=== PATIENT | female | born 1980 | race Hispanic/Latino ===

== ENCOUNTER 2019-08-17 03:35 | Emergency (ER) | payer SELFPAY ==
[2019-08-17 03:52] VITALS: BP 132/88
--- NOTE | 2019-08-17 04:00 | Emergency Department Report ---
ED Medical Clearance HPI - General Stated complaint: MEDICAL CLEARANCE/DRUG ABUSE Time Seen by Provider: 08/17/19 03:47 Source: patient, EMS Mode of arrival: Stretcher Limitations: No Limitations - History of Present Illness Initial comments: Patient is a 39-year-old that presents emergency room for medical clearance to be admitted into a rehabilitation center at [facility]. Patient brought in by EMS. Patient states 2 days ago she took 2 Brook's and wants help with her drug add iction. Patient denies any complaints. Patient states she feels fine. Patient denies past medical history except for drug abuse. Patient denies chest pain shortness of breath. patient denies suicidal or homicidal ideations. pt Denies hallucinations. She is transported here from [facility] by EMS and is currently on a court ordered drug rehabilitation. Complaint: medical clearance request -: Sudden Reason for Medical Clearance: other Alledged Intoxication: No Compliant with Home Medications: Yes Traumatic Symptoms: denies traumatic injury Associated Symptoms: denies other symptoms. denies: chest pain, shortness of breath, palpitations, diaphoresis, confusion, cough, fever/chills, headaches, anorexia, malaise, nausea/vomiting, rash, seizure, syncope, weakness Treatments Prior to Arrival: none Allergies/Adverse reactions: Allergies Allergy/AdvReac Type Severity Reaction Status Date / Time No Known Allergies Allergy Verified 08/17/19 03:45 ED Review of Systems ROS: Stated complaint: MEDICAL CLEARANCE/DRUG ABUSE Other details as noted in HPI Constitutional: denies: chills, fever Eyes: denies: eye pain, eye discharge, vision change ENT: denies: ear pain, throat pain Respiratory: denies: cough, shortness of breath, wheezing Cardiovascular: denies: chest pain, palpitations Endocrine: no symptoms reported Gastrointestinal: denies: abdominal pain, nausea, diarrhea Genitourinary: denies: urgency, dysuria, discharge Musculoskeletal: denies: back pain, joint swelling, arthralgia Skin: denies: rash, lesions Neurological: denies: headache, weakness, paresthesias Psychiatric: denies: anxiety, depression Hematological/Lymphatic: denies: easy bleeding, easy bruising ED Past Medical Hx - Past Medical History Previous Medical History?: No - Surgical History Past Surgical History?: No - Family History Family history: no significant - Social History Smoking Status: Never Smoker Substance Use Type: Prescribed, Other ED Physical Exam - General Limitations: No Limitations General appearance: alert, in no apparent distress - Head Head exam: Present: atraumatic, normocephalic - Eye Eye exam: Present: normal appearance - ENT ENT exam: Present: mucous membranes moist - Neck Neck exam: Present: normal inspection - Respiratory Respiratory exam: Present: normal lung sounds bilaterally. Absent: respiratory distress - Cardiovascular Cardiovascular Exam: Present: regular rate, normal rhythm. Absent: systolic murmur, diastolic murmur, rubs, gallop - GI/Abdominal GI/Abdominal exam: Present: soft, normal bowel sounds - Extremities Exam Extremities exam: Present: normal inspection - Back Exam Back exam: Present: normal inspection - Neurological Exam Neurological exam: Present: alert, oriented X3 - Psychiatric Psychiatric exam: Present: normal affect, normal mood - Skin Skin exam: Present: warm, dry, intact, normal color. Absent: rash ED Course Vital Signs 08/17/19 08/17/19 03:47 03:51 Temperature 98.0 F Pulse Rate 98 H Respiratory 18 18 Rate Blood Pressure 132/88 O2 Sat by Pulse 99 99 Oximetry - Reevaluation(s) Reevaluation #1: Poison control contacted by the nurse for the two-mile is that she ingested 2 days ago. Recommendations will be received. Patient will be medically cleared. 08/17/19 03:50 Reevaluation #2: Patient is medically cleared. I discussed all results with patient. Patient is stable to return to [facility] to start her drug rehabilitation. 08/17/19 04:46 ED Medical Decision Making - Lab Data Result diagrams: 08/17/19 03:57 08/17/19 03:57 - EKG Data -: EKG Interpreted by Me EKG shows normal: sinus rhythm, axis, intervals, QRS complexes, ST-T waves Rate: normal - Medical Decision Making She is a 39-year-old female up since emergency room with complaints of needing medical clearance for drug rehabilitation. Patient was sent here for medical clearance. Patient took 2 Brook's 2 days ago and poison control was contacted. Poison control states patient is medically cleared. Patient will be transported back to [facility] - Differential Diagnosis medicall clearance. ED Disposition Clinical Impression: Medical clearance for psychiatric admission, Drug abuse Disposition: [id number] PSY HOSP/PSY UNIT Is pt being admited?: No Does the pt Need Aspirin: No Condition: Stable Instructions: Methamphetamine Abuse (ED), Medical Clearance for Substance Abuse Treatment (ED) Additional Instructions: Patient to be discharged from the ER and be transported via EMS directly to [facility] to start rehabilitation. Referrals: VICKY DANIEL SR, MD [Primary Care Provider] - 2-3 Days Time of Disposition: 04:49
[2019-08-17 04:17] LABS: Basophils # (Auto) 0.1 K/mm3 (0.0-0.1); Basophils % (Auto) 0.8 % (0.0-1.8); Eosinophils # (Auto) 0.1 K/mm3 (0.0-0.4); Eosinophils % (Auto) 0.9 % (0.0-4.3); Hematocrit 32.6 % (30.3-42.9); Hemoglobin 11.2 gm/dl (10.1-14.3); Lymphocytes # (Auto) 2.5 K/mm3 (1.2-5.4); Lymphocytes % (Auto) 20.5 % (13.4-35.0); Mean Corpuscular HGB Conc 34 % (30-34); Mean Corpuscular Volume 92 fl (79-97); Monocytes # (Auto) 1.2 K/mm3 (0.0-0.8); Monocytes % (Auto) 9.8 % (0.0-7.3); Platelet Count 217 K/mm3 (140-440); Red Blood Count 3.54 M/mm3 (3.65-5.03); Red Cell Distribution Width 13.9 % (13.2-15.2)
[2019-08-17 04:31] LABS: Bilirubin,Urine NEG (Negative); Blood,Urine SM (Negative); Color,Urine Straw (Yellow); Mucus,Urine FEW /HPF; Protein,Urine <15 mg/dL mg/dL (Negative); Urobilinogen,Urine < 2.0 mg/dL (<2.0); WBC,Urine < 1.0 /HPF (0.0-6.0)
[2019-08-17 04:37] LABS: BUN/Creatinine Ratio 24; Blood Urea Nitrogen 12 mg/dL (7-17); Hemolysis Index 12
[2019-08-17 04:39] LABS: Benzodiazepines Screen,Urine PRESUMPTIVE NEGATIVE; Cannabinoid Screen,Urine PRESUMPTIVE NEGATIVE; Cocaine Screen,Urine PRESUMPTIVE NEGATIVE; Methadone Screen,Urine PRESUMPTIVE NEGATIVE; Opiate Screen,Urine PRESUMPTIVE NEGATIVE
[2019-08-17 05:12] LABS: Amphetamine Screen,Urine PRESUMPTIVE POSITIVE
== END 2019-08-17 10:07 ==
LOC: ED 03:35
DX: F19.10 Other psychoactive substance abuse, uncomplicated (principal)
CPT/HCPCS: 36415; 80048; 80307; 80320; 81001; 84703; 85025; 93005; 93010; G0480